=== PATIENT | male | born 2000 | race Caucasian/White ===

== ENCOUNTER 2018-12-24 14:37 | Emergency (ER) | payer MEDICAID ==
--- NOTE | 2018-12-24 14:49 | ER Report ---
History and Physical Time Seen By MD: 14:49 HPI/ROS CHIEF COMPLAINT: Right knee pain HISTORY OF PRESENT ILLNESS: 18-year-old male patient presents to emergency room with complaint of right knee pain. Patient states that he was in bed lying on his stomach. When he went to get up his right knee became locked in a flexed position. Patient states that he's had this happen in the past. He states that the knee needs to be straightened. He states that he is not able to do that himself as it hurts so badly. Patient states he is not taking any medication for this. He states the last time this had occurred that he was given morphine and had a reduced, however he states that was most painful experience of his life. Patient denies any previous injury, however he was told by an orthopedist that he has very flexible meniscus. REVIEW OF SYSTEMS: Respiratory: No cough, no dyspnea. Cardiovascular: No chest pain, no palpitations. Gastrointestinal: No vomiting, no abdominal pain. Musculoskeletal: As noted above Allergies: Coded Allergies: No Known Allergies (Verified Allergy, Unknown, 12/24/18) Home Meds Reported Medications Venlafaxine Hcl (EFFEXOR XR) 150 Mg Cap.er.24h, 150 MG PO QDAY 12/24/18 Methylphenidate Hcl (RITALIN) 10 Mg Tab, 10 MG PO QDAY, TAB 12/24/18 Past Medical/Surgical History Patient has a past medical history of OCD, depression, anxiety. Patient denies any surgical history. Reviewed Nurses Notes: Yes Constitutional Vital Sign - Last 24 Hours 12/24/18 12/24/18 12/24/18 12/24/18 14:48 15:41 15:45 15:50 Temp 98.6 Pulse 112 89 Resp 18 14 B/P (MAP) 112/72 126/76 (93) 134/79 (97) Pulse Ox 96 92 O2 Delivery Room Air 12/24/18 12/24/18 12/24/18 12/24/18 16:00 16:09 16:12 16:14 Pulse 86 Resp 15 B/P (MAP) 107/91 (96) 125/76 (92) 111/81 (91) 98/62 (74) Pulse Ox 97 12/24/18 12/24/18 12/24/18 12/24/18 16:15 16:17 16:20 16:28 Pulse 92 Resp 10 B/P (MAP) 99/56 (70) 102/54 (70) 110/61 (77) Pulse Ox 97 12/24/18 12/24/18 12/24/18 12/24/18 16:30 16:42 16:47 17:00 Pulse 79 76 Resp 9 14 B/P (MAP) 108/57 (74) 110/67 (81) 102/63 (76) Pulse Ox 98 93 12/24/18 12/24/18 12/24/18 17:02 17:15 17:17 Pulse 74 73 Resp 15 10 B/P (MAP) 100/61 (74) 108/61 (77) Pulse Ox 92 94 Physical Exam General Appearance: The patient is alert, has no immediate need for airway protection and no current signs of toxicity. Respiratory: Chest is non tender, lungs are clear to auscultation. Cardiac: regular rate and rhythm Gastrointestinal: Abdomen is soft and non tender, no masses, bowel sounds normal. Musculoskeletal: Neck: Neck is supple and non tender. Extremities have full range of motion and are non tender. The right knee is stuck in a flexed position. Patient had significant amount of pain when I tried to straighten it. Skin: No rashes or lesions. DIFFERENTIAL DIAGNOSIS: After history and physical exam differential diagnosis was considered for dislocation, fracture, meniscal injury. Medical Decision Making EKG/Imaging Imaging Technique: KNEE LIMITED RIGHT HISTORY: knee pain Comparison studies: None FINDINGS: There is no acute fracture. Overall, there is gross anatomic alignment of the right knee on the provided images. No knee joint effusion. IMPRESSION: 1. No acute osseous process. No knee joint effusion. Report Dictated By: Preston Rodney DO at 12/24/2018 3:22 PM Report E-Signed By: Preston Rodney DO at 12/24/2018 3:23 PM ED Course/Re-evaluation ED Course Patient was admitted to an exam room, history and physical were obtained. Differential diagnoses were considered. On examination lungs are clear, heart is regular, abdomen is soft and nontender. Patient did have his right knee stocking in a flexed position. Patient has significant amounts of pain when tried to straighten it without anything. At that time it was decided to go ahead and do an x-ray. If there are no fractures we will go ahead and do conscious sedation to straighten the knee. X-ray was done which showed no acute fractures. We then did a conscious sedation as described below. When patient was relaxed enough I was able straighten the knee without any difficulties. We did monitor the patient, he was fully awake. At which time patient was discharged home. He is to take Tylenol or ibuprofen as needed for pain. Patient was placed in a knee immobilizer and given crutches here in the emergency room. He is follow-up with his orthopedist, calling on Wednesday to make an appointment. Patient verbalized understanding and agreement with plan. Procedure: Procedural sedation. A pre-sedation evaluation was completed on the patient at 1510. Patient is an appropriate candidate for procedural sedation. The risks of the sedation were discussed with the patient. A time out was completed. The patient was reevaluated immediately prior to initiation of sedation. The patient was sedated with 150 mg of propofol. The patient was monitored with continuous pulse oximetry and traffic monitor specialist. There were no complications and no significant hypoxemia. I remained at the bedside for the sedation. The total time I spent in the procedural sedation was 15 minutes. Post sedation evaluation: Patient was alert and cooperative, hemodynamically stable with appropriate respiratory status, temperature and pain control without ongoing nausea and vomiting. Conscious sedation was performed by Dr. Simpson Procedure: Reduction of locked knee The knee was straightened in the usual fashion without complications. Post reduction the patient's neurovascular exam is normal. Post reduction x-ray demonstrates reduction of the joint to the anatomic position. The procedure was performed by myself. Decision to Disposition Date: Dec 24, 2018 Decision to Disposition Time: 16:42 Depart Departure Latest Vital Signs Vital Signs Date Time Temp Pulse Resp B/P (MAP) Pulse Ox O2 Delivery O2 Flow Rate FiO2 12/24/18 17:17 73 10 108/61 (67) 94 12/24/18 14:48 98.6 Room Air Impression: Primary Impression: Knee locking Condition: Improved Disposition: HOME OR SELF-CARE Patient Instructions: GENERAL ER DISCHARGE INSTRUCTIONS Additional Instructions: Limit activity by pain. Ice the knee 2-3 times a day for 10-15 minutes. Get plenty of rest. Wear the knee immobilizer when you are up moving around, you may take it off to shower or to sleep. Take Tylenol or Ibuprofen as needed for pain. Follow up with your orthopedic surgeon, call on Carlos to make an appointment. Return to the ER if condition worsens. Problem Qualifiers Primary Impression: Knee locking Laterality: right Qualified Codes: M23.91 - Unspecified internal derangement of right knee MARIANNA AYALA Dec 24, 2018 14:49
[2018-12-24] MEDS ORDERED: VENL150C61 PO (14:54)
[2018-12-24] MEDS ORDERED: METHY10 PO (14:54)
--- NOTE | 2018-12-24 15:27 | RADIOLOGY IMAGING REPORT ---
FACILITY: [facility] PATIENT NAME: Scotty Leung : 2000 MR: [id number] V: [id number] EXAM DATE: ORDERING PHYSICIAN: MARIANNA AYALA TECHNOLOGIST: Location: [facility] - [place] Patient: Scotty Leung : 2000 Visit/Account:[id number] Date of Sevice: 12/24/2018 Technique: KNEE LIMITED RIGHT HISTORY: knee pain Comparison studies: None FINDINGS: There is no acute fracture. Overall, there is gross anatomic alignment of the right knee on the provided images. No knee joint effusion. IMPRESSION: 1. No acute osseous process. No knee joint effusion. Report Dictated By: Preston Rodney DO at 12/24/2018 3:22 PM Report E-Signed By: Preston Rodney DO at 12/24/2018 3:23 PM WSN:[id number]
[2018-12-24] MEDS ORDERED: NS(*) 0.9% 1000 ML BAG 1,000 ML IV ONE (15:30)
[2018-12-24] MEDS ORDERED: PROPOFOL EMUL 10MG/ML 20 ML VL IVP ONE (15:30)
[2018-12-24] MEDS ORDERED: ONDANSETRON 4 MG/2 ML VIAL IVP ONE (15:45)
[2018-12-24 17:17] VITALS: BP 108/61
== END 2018-12-24 17:20 | disposition home or self-care (01) ==
LOC: ER 14:55
DX: M23.91 Unspecified internal derangement of right knee (principal)
CPT/HCPCS: 73560; 96374; 96375; 99285; J2405; J2704; J7030